=== PATIENT | female | born 1980 | race Caucasian/White ===

== ENCOUNTER 2024-11-25 12:36 | Outpatient (CLI) | payer OTHER, SELFPAY ==
--- NOTE | ~2024-11-25 | MR_ITS ---
MR breast BI wo/w con 11/26/2024 07:41 AUTO TRANSMISSION TECHNICIAN INDICATION: CHEK2 Gene mutation TECHNIQUE: MRI of the breasts perform using standard protocol pre-and post IV contrast with the follo wing sequences: Axial T2 STIR, axial T1, axial vibrant T1 with fat suppression precontrast and multip hasic postcontrast. 18 cc MultiHance administered intravenously. COMPARISON: No prior studies for comparison. FINDINGS: There is a scattered fibroglandular content throughout both breasts. There are bilateral br east implants which appear intact. There are no abnormalities on the precontrast sequences. There is mild background parenchymal enhancement. No enhancing lesions following contrast administration. No areas of enhancement meeting threshold criteria on CAD analysis. No evidence of signal abnormalitie s in the axillary or internal mammary node distributions. LEFT BREAST: No signal abnormalities on precontrast sequences. There is mild background parenchymal enhancement. There is segmental nonmass-like enhancement in the upper outer quadrant of the left ashutosh st at 1:00, middle third, 8.8 cm posterior to the nipple. This area measures 2.7 x 0.9 x 2.5 cm with rapid washout enhancement. No evidence of signal abnormalities in the axillary or internal mammary no de distributions.] IMPRESSION: 1: Segmental nonmass-like enhancement in the upper outer quadrant of the left breast. There are scatt ered areas of bilateral symmetric nodular nonmasslike enhancement, likely background enhancement. Rec ommend correlation with diagnostic bilateral mammogram and bilateral complete breast ultrasound. BI-RADS CATEGORY 0 - INCOMPLETE STUDY, NEED ADDITIONAL IMAGING EVALUATION. Reviewed, dictated and finalized at location B. TRANSMISSION TECHNICIAN IMPRESSION: 1: Segmental nonmass-like enhancement in the upper outer quadrant of the left b reast. There are scattered areas of bilateral symmetric nodular nonmasslike enh ancement, likely background enhancement. Recommend correlation with diagnostic bilateral mammogram and bilateral complete breast ultrasound. BI-RADS CATEGORY 0 - INCOMPLETE STUDY, NEED ADDITIONAL IMAGING EVALUATION.
--- OUTSIDE RECORDS SUMMARY | 2024-11-25 13:40 | XMS_ITS | Encounter Summary ---
Author Organization [facility] Address [address] [place] [address] Phone Care Team Providers Care Oracle Manager Name Role Phone Lia Duran MD Unavailable Rajwinder Alvarez APRN, DATA CONVERSION ANALYST Unavailable Newton Dos Santos JIGGER CROWN POUNCING MACHINE OPERATOR, DATA CONVERSION ANALYST Primary Care Pr ovider Yfn Veliz MD Unavailable Encounter Details Date Type Department Care Team (Late Contact Info) Description 2024 Results Follow-Up [facility] - Gastroenterology - [place] [address] [place] [address] Ellie Diaz, RN [place] Social History Tobacco Use Types Packs/Day Years Used Date Smoking Tobacco: Some Days Cigarettes 0.3 32.1 Started: 1992 Smokeless Tobacco: Never Comments:Patient declined sm oking cessation information/kkb Alcohol Use Standard Drinks/Week Comments Yes 10 (1 standard drink = 0.6 oz pu re alcohol) weekend drinker (8-10) Sexually Active Control Partners Comments Yes Surgical Male Comments No Sex and Gender Information Value Date Recorded Sex Assigned at Not on file 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 Gender Identity Not on file Sexual Orientation Not on file documented as of this encounter Plan of Treatment Upcoming Encounters Date Type Department Care Team (Late st Contact Info) Description 03/02/2025 3:15 PM CDT Office Visit [facility] - Endocrinology - [place] [address] [place] [phone] Lia Duran MD [address] [phone] 03/25/2025 1:40 PM CDT Office Visit [facility] [address] [place] [phone] Olvin Livingston MD [address] [place] [address] Discharge Disposition: Discharged to home or Selfcare documented as of this encounter Visit Diagnoses Not on filedocumented in this encounter Care Teams Oracle Manager Relationship Specialty Start Date End Date Newton Dos Santos APRN, DATA CONVERSION ANALYST [address] [id number] PCP - General Advanced Practice Nurse 06/24/24 Lia Duran MD [address] [id number] Consulting Physician Endocrinology 01/02/24 Rajwinder Alvarez APRN, DATA CONVERSION ANALYST [address] [place] [address] Nurse Practitioner Advanced Practice Nurse 02/18/24 Yfn Veliz MD [address] [address] Consulting Physician Colon and Rectal Surgery 06/25/24 documented as of this encounter
--- OUTSIDE RECORDS SUMMARY | 2024-11-25 13:40 | XMS_ITS | Clinical Summary ---
Author Organization [facility] Address [address] [place] [address] Care Team Providers Care Account Technician Name Role Phone Ernesto Tom MD Primary Care Provider Lorelei Urena MD Unavailable [phone] Kecia Flores NP Unavailable Allergies Active Allergy Reactions Criticality Noted Date Comments Latex Itching,Rash Medium 01/02/2019 Nitrofurantoin Monohyd/M-Cryst Urticaria Medium 03/02/2021 Morphine Shortness of breath Medium Reaction: Trouble Breathing, , , , Reaction: Trouble Breathing, Morphine Other (See comments) Low 01/02/2019 Difficulty breathing Sulfa (Sulfonamide Antibiotics) Joint pain,Other (See comments) Medium Reaction: Joint pain, , Reaction: OTHER REACTION, , , Reaction: Joint pain, Sulfa (Sulfonamide Antibiotics) Other (See comments) Low 01/02/2019 Lowers potassium Medications ELDERBERRY FRUIT ORAL Take by mouth Activ e ibuprofen (ADVIL,MOTRIN) 600 mg tablet Take 1 tablet (600 mg total) by mouth every 6 (six) hours as needed for pain 2 Active Mounjaro 5 mg/0.5 mL pen injector INJECT 5MG SUBCUTANEOUS ONCE WEEKLY 3 Active Mounjaro 7.5 mg/0.5 mL pen injector INJECT 1 SYRINGE UNDER THE SKIN ONCE WEEKLY 3 Active methIMAzole (TAPAZOLE) 10 mg tablet Take 1 tablet (10 mg total) by mouth daily 30 tablet 3 3 Active metFORMIN (GLUCOPHAGE) 850 mg tablet Take 1 tablet (850 mg total) by mouth daily 3 Active dexAMETHasone (DECADRON) 1 mg tablet TAKE 1 TABLET BY MOUTH BETWEEN 11 PM AND 12AM THE DAY BEFORE LABS 3 Active fluconazole (DIFLUCAN) 150 mg tabletIndicatio ns:Antibiotic-i nduced yeast infection Take 1 then, repeat in 5 days if needed 2 tablet 3 Active Active Problems Problem Noted Date Diagnosed Date Irritable bowel syndrome without diarrhea 2022 GERD (gastroesophageal reflux disease) 3 Thyrotoxicosis with toxic multinodular goiter Assessment & Plan (12/31/2022 10:11 AM CDT): Chronic, uncontrolled Options of rx were discussed again Would not recommend CHACKO ablation, pt also not inclined towards it. Importance of taking the methimazole, in order to control the hyperthyroidism was explained. Methimazole, 10 mg daily Recheck TFTs in 2 m F/u in 4 m Assessment & Plan (01/15/2022 11:13 AM CDT): Chronic problem, not at goal. Discussed at length thyroid disease pathophysiology and need for normalization of thyroid hormone levels which she understands. Discussed monitoring protocol with MMI (q 2-3 month labs, regular f/u) vs. LT4 if she ended up on thyroid hormone replacement if she goes with more permanent option for treatment. She thinks she prefers more permanent treatment but unsure about CHACKO vs surgery. Will order I-123 scan to evaluate further since she is already off MMI. When she goes in for scan, repeat labs the same day to reevaluate. Rx for propanolol to use as needed for symptoms, reviewed again that these are related to underlying hyperthyroidism, not anti thyroid drug AE. Assessment & Plan (08/14/2021 4:03 PM CDT): It was explained to the patient that the therapeutic approach to hyperthyroidism consists of both rapid amelioration of symptoms with a beta saurabh and measures aimed at decreasing thyroid hormone synthesis. Options of treatment were discussed and include: the administration of a thionamide, radioiodine ablation, or surgery . Goal of treatment Is to normalize serum thyroid hormone levels, as indicated by a normal serum level of T4 and T3. Normalization of thyroid hormone levels usually translates into improvement of symptoms. Weight gain is a common complaint in patients treated for hyperthyroidism, regardless of what treatment is used. Most patient go back to their original weight and but many patients gain additional weigth A low calorie diet and a exercise program is of paramount importance when addressing this problem. I have recommended to start with thionamide therapy with Tapazole 10 mg daily. I have given an order to check thyroid levels again in 2 months. Follow-up in 4 months Assessment & Plan (07/19/2021 3:21 PM CDT): Referral to Wreath Inspector If medical therapy for Hyperthyroidism is unsuccessful will recommend thyroid lobectomy Menorrhagia 03/13/2021 Overview (07/20/2023): Added automatically from request for surgery [id number] Note: Unchanged Benign endometrial hyperplasia 03/13/2021 Overview (09/21/2023): Note: Unchanged Note: Unchanged Screening for diabetes mellitus 01/27/2021 Thyroid nodule 06/02/2015 Overview (01/25/2017): Thyroid nodule Obesity 05/19/2015 Overview (07/20/2023): BMI 30+ - obesity Polycystic ovaries 05/19/2015 Overview (07/20/2023): PCOS - Polycystic ovarian syndrome Note: history of Anxiety 05/12/2014 Overview (01/25/2017): Anxiety Current smoker 12/19/2012 Overview (01/24/2017): Smoker Adiposity 12/19/2012 Overview (01/25/2017): Obesity Elevated blood-pressure read ing without diagnosis of hypertension 12/19/2012 Overview (01/25/2017): Blood pressure elevated without history of HTN Depression 12/19/2012 Overview (01/25/2017): Depression Immunizations Name Administration Dates Next Due Influenza, Quadrivalent, Spl it, Preservative Free, Intramuscular 09/08/2014 Surgical History Surgery Date Site/Laterality Comments CHOLECYSTECTOMY 10/21/2007 - 10/20/2008 TUBAL LIGATION 10/21/2008 - 10/20/2009 TONSILLECTOMY 10/21/2007 - 10/20/2008 LUMBAR PUNCTURE WO INJECTION, DIAGNOSTIC 05/06/2014 N/A LAPAROSCOPIC OVARIAN CYSTECTOMY 10/21/2018 - 10/20/2019 OVARIAN CYSTECTOMY 10/21/2001 - 10/20/2002 AUGMENTATION MAMMOPLASTY HYSTEROSCOPY W/ ENDOMETRIAL ABLATION 10/21/2021 - 10/20/2022 Hysteroscopy, D&C, Criselda endometrial ablation Medical History Medical History Date Comments Ovarian cyst Right Thyroid nodule PONV (postoperative nausea and vomiting) Depression Depression Abnormal Pap smear of cervix low grade dysplasia around [id number] GERD (gastroesophageal reflux disease) Hyperthyroidism Endometrial hyperplasia with out atypia, simple 2020 Repeat EMB 2021 - benign end ometrium. Family History Medical History Relation Name Comments COPD Father Heart attack Father Lung cancer Father Graves' disease Father's Brother Hypertension Mother Thyroid disease Mother Other Other 1 1 Other Other 2 1 Other Other 3 1 Other Other 4 1 Other Other 5 1 Other Other 6 1 Other Other 7 MGGM Cancer, breast and ovarian; Other Other 8 1 Other Other 9 Family history of Pernicious anemia; RED 05/23/2015 - MUNIRA MGM Relation Name Status Comments Father Father's Brother Mother Other 1 Other 2 Other 3 Other 4 Other 5 Other 6 Other 7 MGGM Other 8 Other 9 Social History Tobacco Use Types Packs/Day Years Used Date Smoking Tobacco: Every Day Cigarettes 0.5 30.1 Started: 1994 Smokeless Tobacco: Never Tobacco Cessation:Ready to Q uit: Not Asked; Counseling Given: Not Answered Alcohol Use Standard Drinks/Week Comments Yes 0 (1 standard drink = 0.6 oz pur e alcohol) Socially AUDIT-C Answer Date Recorded Q1: How often do you have a drink containing alc ohol? 2-4 times a month 08/20/2022 Q2: How many drinks containi ng alcohol do you have on a typical day when you are drinking? 7 to 9 08/20/2022 Q3: How often do you have si x or more drinks on one occasion? 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 Gender Identity Not on file Sexual Orientation Not on file Occupation Industry Job Start Date Job End Date Not on file Not on file Not on file Not on file Obstetrics History Para Term AB IAB SAB Ectopic Multiple Livin g Live Births 3 2 2 0 1 0 0 0 2 2 Date Outcome GA Total Labor Labor/2nd/3rd Weight Sex Type Anes PTL Precious A1 A5 Name Clin AB 1999 Term 3.544 kg (7 lb 13 oz) F Vag-S pont Living 2008 Term 3.969 kg (8 lb 12 oz) M Vag-S pont Living Last Filed Vital Signs Vital Sign Reading Time Taken Comments Blood Pressure 128/80 09/21/2023 8:18 AM ASSISTANT PROFESSOR OF DRAMA Pulse 99 09/21/2023 8:18 AM ASSISTANT PROFESSOR OF DRAMA Temperature 36.7 C (98.1 F) 09/21/2023 8:18 AM ASSISTANT PROFESSOR OF DRAMA Respiratory Rate 18 09/21/2023 8:18 AM ASSISTANT PROFESSOR OF DRAMA Oxygen Saturation 98% 09/21/2023 8:18 AM ASSISTANT PROFESSOR OF DRAMA Inhaled Oxygen Concentration - - Weight 88.5 kg (195 lb) 09/21/2023 8:18 AM ASSISTANT PROFESSOR OF DRAMA Height 170.2 cm (5' 7 ) 09/21/2023 8:18 AM ASSISTANT PROFESSOR OF DRAMA Body Mass Index 30.54 09/21/2023 8:18 AM ASSISTANT PROFESSOR OF DRAMA Plan of Treatment Health Maintenance Due Date Last Done Comments Cervical Cancer Screening 1980 Hepatitis C Screening 1980 Pneumococcal vaccine <65 (1 of 2 - PCV) 1986 DTaP/Tdap/Td Vaccine (1 - Tdap) 1991 Varicella Vaccines (1 of 2 - 13+ 2-dose series) 1993 Hepatitis B Screening 1998 Depression Screening 08/14/2022 08/14/2021 Breast Cancer Screening-Mammogram 07/09/2023 07/09/2022, 12/09/2020 Regular Well Visit/Exam 18-64 02/09/2024, 01/26/2022 Influenza Vaccine (#1) 2024 4, 11/05/2013 HPV Vaccines Aged Out No longer eligi ble based on patient's age to complete this topic Procedures Procedure Name Priority Date/Time Associated Diagnosis Comments SCREENING MAMMOGRAM BILATERAL W SCOTT W IMPLANTS Schedule Routine, Read Routine (OP Routine) 07/09/2022 2:30 PM CDT Encounter for screening mammogram for breast cancer from Last 3 Months or Most Recently Relevant to Health Maintenance Results * Screening Mammogram Bilateral W Scott W Implants (07/09/2022 2:30 PM CDT) Anatomical Region Laterality Modality Breast Bilateral Mammography Narrative 07/09/2022 3:49 PM CDT BILATERAL DIGITAL MAMMOGRAPHY with tomography. The present examination is patient's baseline. Mammography Findings CAD (computer-aided detection) software was utilized. The breasts are heterogeneously dense. This may lower the sensitivity of mammography. No masses, significant calcifications or other abnormalities are seen in the left breast. Bilateral breast implants noted. There is focally dense breast tissue of the right lower outer breast. Although no discrete mass is seen, additional compression views, true lateral image common ultrasound is suggested to better evaluate this area of focal density. Impression Asymmetrical, focally dense breast tissue of the right lower outer breast noted. Additional compression views, true lateral image, and ultrasound suggested to better evaluate this finding. BI-RADS Category 0: Incomplete. Need additional imaging evaluation. PATIENT LETTER SENT us Paula Pantoja MD IMG MAMMO PROCEDURES Final Result from Last 3 Months or Most Recently Relevant to Health Maintenance Insurance [facility] [employer] [employer] ACCESS [place] [address] [place] [id number] [address] [place] [id number] [address] [place] [id number] Care Teams Account Technician Relationship Specialty Start Date End Date Ernesto Tom MD PCP - General 05/22/21 Lorelei Urena MD 09/05/20 Kecia Flores NP [address] [place] [id number] Nurse Practitioner 12/24/22
--- OUTSIDE RECORDS SUMMARY | 2024-11-25 13:40 | XMS_ITS | Data Portability ---
Author Organization [facility] Address [address] [facility] [address] Assessment No assessment recorded. Plan of Treatment Reminders Order Date Submit Date Provider Last Modified By Organization Details Last Modified Time Details Appointments None recorded. Lab bacterial vaginosis + vaginitis panel, vaginal 2016 017 okolade [facility], [address] [place] [address], [facility], [place], [address], 7 11:34:11 pap, IG + reflex HR HPV (16+18) 2016 017 okolade [facility], [address] [place] [address], [address], [place], [address], 7 11:34:11 CBC w/ auto diff 2016 017 okolade [facility], [address] [place] [address], [address], [place], [address], 7 11:34:11 prolactin, serum 2016 017 okolade [facility], [address] [place] [address], [address], [place], [address], 7 11:34:11 urinalysis , dipstick 2016 017 okolade In-Office Order, Internal Use Only DO Not Attach Compendium DO Not Attach Compendium, Do Not Delete/merge, [id number] 7 11:34:11 culture, urine 2016 017 manuel FRIEDMAN, Marcello Rendon, [address], [place], [address], 7 11:34:11 test, urine 2016 017 milaolade In-Office Order, Internal Use Only DO Not Attach Compendium DO Not Attach Compendium, Do Not Delete/merge, [id number] 7 11:34:11 urinalysis , dipstick 2017 018 MICHELET In-Office Order, Internal Use Only DO Not Attach Compendium DO Not Attach Compendium, Do Not Delete/merge, [id number] 8 19:10:33 culture, urine 2017 018 MICHELET RANGELELEUTERIO, Marcello De Souza [address], [address], [place], [address], 8 11:10:08 drug screen, urine 2017 018 MICHELET RANGELELEUTERIO, Marcello De Souza [address], [address], [place], [address], 8 11:10:07 bacterial vaginosis + vaginitis panel, vaginal 2017 018 MICHELET RANGELELEUTERIO, Marcello [address]endon, [address], [place], [address], 8 11:10:07 prolactin, serum 2018 019 MICHELET RANGELELEUTERIO, Marcello Duquefernandopatrickangel Rendon, [address], [place], [address], 9 07:15:28 CBC w/ auto diff 2018 019 MICHELETREENA FRIEDMAN, LopezKatrina [facility], [address], [place], [address], 9 07:15:27 TSH + free T4, serum 2018 019 [place] [facility], [address] [facility], [address], [place], [address], 9 07:15:27 Referral None recorded. Procedures None recorded. Surgeries None recorded. Imaging US, pelvis, complete 2017 [facility], [address] , [place], [address], 8 16:25:53 US, pelvis, complete 2018 [facility] Scheduling, [address] [facility] [place], [address], 9 15:47:12 Medication Orders Tylenol-Co deine #3 300 mg-30 mg tablet 2017 018 [id number], [address] [facility], [place], [place], [id number], 8 18:59:35 Patient TargetsNo targets recorded. Patient Instructions Encounter Date Encounter Id Patient Instructions Last Modified By Organization Details Last Modified Time 07/31/2017 [id number] CBC, TSH, prolactin was ordered for abnormal uterine bleeding. The option of mirena IUD was discussed with the patient. The alternative of endometrial ablation also discussed with the patient. Patient is not a candidate for OCPs as she smokes and is more than 35 years old. Pap smear was sent. Vaginitis panel and urine culture was ordered. Will do a bedside US during the next visit if the pain persists. okolade Not available 08/01/2017 00:49:21 01/07/2018 [id number] Urinary Tract Infection (UTI) in Women: Care Instructions okolade Not available 01/07/2018 18:59:35 Labs and pelvic US was ordered. Will re-evaluate with results. Rx for pain medication was given. okolade Not available 01/07/2018 19:38:45 Reason for Referral None Reported. Results Created Date Observation Date Name Description Value Unit Range Abnormal Flag Note LastModifiedBy Organization Detail LastModifiedTime 08/01/20 17 08/01/2017 pregn ela test, urine HCG negati ve Not Available In-Office Order Internal Use Only DO Not Attach Compendium DO Not Attach Compendium, Do Not Delete/merge, [id number] 08/01/2017 09:17:18 07/31/20 17 07/31/2017 urina lysis , dipst ick Leukocytes Negati ve Not Available In-Office Order Internal Use Only DO Not Attach Compendium DO Not Attach Compendium, Do Not Delete/merge, [id number] 07/31/2017 15:46:54 07/31/20 17 07/31/2017 urina lysis , dipst ick Nitrite negati ve Not Available In-Office Order Internal Use Only DO Not Attach Compendium DO Not Attach Compendium, Do Not Delete/merge, [id number] 07/31/2017 15:46:54 07/31/20 17 07/31/2017 urina lysis , dipst ick Urobilinogen .2 Not Available In-Of fice Order Internal Use Only DO Not Attach Compendium DO Not Attach Compendium, Do Not Delete/merge, [id number] 07/31/2017 15:46:54 07/31/20 17 07/31/2017 urina lysis , dipst ick Protein Trace Not Available In-Office Order Internal Use Only DO Not Attach Compendium DO Not Attach Compendium, Do Not Delete/merge, [id number] 07/31/2017 15:46:54 07/31/20 17 07/31/2017 urina lysis , dipst ick pH 5.5 Not Available In-Office Order Internal Use Only DO Not Attach Compendium DO Not Attach Compendium, Do Not Delete/merge, [id number] 07/31/2017 15:46:54 07/31/20 17 07/31/2017 urina lysis , dipst ick Blood Negati ve Not Available In-Office Order Internal Use Only DO Not Attach Compendium DO Not Attach Compendium, Do Not Delete/merge, [id number] 07/31/2017 15:46:54 07/31/20 17 07/31/2017 urina lysis , dipst ick Specific [place] 1.020 Not Available In-Off ice Order Internal Use Only DO Not Attach Compendium DO Not Attach Compendium, Do Not Delete/merge, [id number] 07/31/2017 15:46:54 07/31/20 17 07/31/2017 urina lysis , dipst ick Ketone Trace Not Available In-Office Order Internal Use Only DO Not Attach Compendium DO Not Attach Compendium, Do Not Delete/merge, [id number] 07/31/2017 15:46:54 07/31/20 17 07/31/2017 urina lysis , dipst ick Bilirubin Small Not Available In-Offic e Order Internal Use Only DO Not Attach Compendium DO Not Attach Compendium, Do Not Delete/merge, [id number] 07/31/2017 15:46:54 07/31/20 17 07/31/2017 urina lysis , dipst ick Glucose Negati ve Not Available In-Office Order Internal Use Only DO Not Attach Compendium DO Not Attach Compendium, Do Not Delete/merge, [id number] 07/31/2017 15:46:54 07/31/20 17 07/31/2017 urina lysis , dipst ick Appearance Slight ly Cloudy Not Available In-Office Order Internal Use Only DO Not Attach Compendium DO Not Attach Compendium, Do Not Delete/merge, [id number] 07/31/2017 15:46:54 07/31/20 17 07/31/2017 urina lysis , dipst ick Color Dark Yellow Not Available In-Office Order Internal Use Only DO Not Attach Compendium DO Not Attach Compendium, Do Not Delete/merge, [id number] 07/31/2017 15:46:54 07/31/20 17 08/02/2017 pap, IG + refle x HR HPV (16+1 8) diagnosis: Commen t NEGAT DALTON FOR INTRA EPITH ELIAL LESKINGSTON N AND FELICITY SALOMON . Not Available [facility] [address] [facility], [place], [address], 08/03/2017 07:13:35 07/31/20 17 08/02/2017 pap, IG + refle x HR HPV (16+1 8) specimen adequacy: Commen t Satis facto ry for evalu ation . Endoc ervic al and/o r squam ous metap lasti c cells (endo cervi mark compo nent) are prese nt. Not Available [facility] ([facility]) [address] [facility], [place], [address], 08/03/2017 07:13:35 07/31/20 17 08/02/2017 pap, IG + refle x HR HPV (16+1 8) performed by: Darian Rome , Cytojillian walsh (ASCP ) Not Available [facility] ([facility] [address] [place], [address], 08/03/2017 07:13:35 07/31/20 17 08/02/2017 pap, IG + refle x HR HPV (16+1 8) . . Not Available [facility] ([facility]) [address] [facility], [place], [address], 08/03/2017 07:13:35 07/31/20 17 08/02/2017 pap, IG + refle x HR HPV (16+1 8) note: Darian walsh The Pap smear is a scree deborah test desig ana maria to aid in the detec tion of emile ligna nt and malig nant condi tions of the uteri ne cervi x. It is not a diagn ostic proce dure and shoul d not be used as the sole means of detec ting cervi mark cance r. Both false -posi tive and false -nega tive repor ts do occur . Not Available [facility]) [address] [facility], [place], [address], 08/03/2017 07:13:35 07/31/20 17 08/02/2017 pap, IG + refle x HR HPV (16+1 8) test methodology: Darian walsh This liqui d based ThinP rep(R ) pap test was scree ana maria with the use of an image guide d syste m. Not Available [facility] ([facility]) [address] [facility], [place], [address], 08/03/2017 07:13:35 07/31/20 17 08/02/2017 pap, IG + refle x HR HPV (16+1 8) HPV, high-risk Negati ve negati ve This high- risk HPV test detec ts thirt een high- risk types (16/1 8/31/ 33/35 /39/4 5/51/ 52/56 /58/5 ) witho ut diffe renti ation . Not Available [facility]) [address] [facility], [place], [address], 08/03/2017 07:13:35 07/31/20 17 08/02/2017 bacte rial vagin osis + vagin itis panel , vagin al atopobium vaginae High - 2 score abnormal Not Available [facility] [address] [place], [address], 08/03/2017 16:11:00 07/31/20 17 08/02/2017 bacte rial vagin osis + vagin itis panel , vagin al bvab 2 High - 2 score abnormal Not Available [facility] [address] [place], [address], 08/03/2017 16:11:00 07/31/20 17 08/02/2017 bacte rial vagin osis + vagin itis panel , vagin al megasphaera 1 High - 2 score abnormal Calcu late total score by addin g the 3 indiv idual bacte rial vagin osis (BV) marke r score s toget her. Total score is inter prete d as follo ws: Total score 0-1: Indic ates the absen ce of BV. Total score 2: Indet ermin ate for BV. Addit ional clini mark data shoul d be evalu ated to estab dirk a diagn osis. Total score 3-6: Indic ates the prese nce of BV. This test was devel oped and its perfo rmanc e justin cteri stics deter mined by [employer]. It has not been clear ed or appro pramod by the Food and Drug Admin istra tion. The FDA has deter mined that such clear ance or appro will is not neces april. Not Available [facility] ([facility] [address] [place], [address], 08/03/2017 16:11:00 07/31/20 17 08/03/2017 bacte rial vagin osis + vagin itis panel , vagin al adriano albicans, NOLBERTO Negati ve negati ve Not Available [facility] [address] [place], [address], 08/03/2017 16:11:00 07/31/20 17 08/03/2017 bacte rial vagin osis + vagin itis panel , vagin al adriano glabrata, NOLBERTO Negati ve negati ve This test was devel oped and its perfo rmanc e justin cteri stics deter mined by [employer] [facility]. It has not been clear ed or appro pramod by the Food and Drug Admin istra tion. The FDA has deter mined that such clear ance or appro will is not neces april. Not Available [facility] ([facility] [address] [place], [address], 08/03/2017 16:11:00 07/31/20 17 08/03/2017 bacte rial vagin osis + vagin itis panel , vagin al trich vag by NOLBERTO Negati ve negati ve Not Available [facility] [address] [place], [address], 08/03/2017 16:11:00 07/31/20 17 08/03/2017 bacte rial vagin osis + vagin itis panel , vagin al chlamydia trachomatis, NOLBERTO Negati ve negati ve Not Available [facility] [address] [place], [address], 08/03/2017 16:11:00 07/31/20 17 08/03/2017 bacte rial vagin osis + vagin itis panel , vagin al neisseria gonorrhoeae, NOLBERTO Negati ve negati ve Not Available [facility] [address] [facility], [place], [address], 08/03/2017 16:11:00 07/31/20 17 08/01/2017 CBC w/ auto diff WBC 7.7 x10e3 /uL 3.4-10 .8 Not Available [facility] [address] [place], [address], 08/03/2017 16:11:00 07/31/20 17 08/01/2017 CBC w/ auto diff RBC 5.12 x10e6 /uL 3.77-5 .28 Not Available [facility] [address] [place], [address], 08/03/2017 16:11:00 07/31/20 17 08/01/2017 CBC w/ auto diff hemoglobin 17.4 g/dL 11.1-1 5.9 above high normal Not Available [facility] [address] [place], [address], 08/03/2017 16:11:00 07/31/20 17 08/01/2017 CBC w/ auto diff hematocrit 46.7 % 34.0-4 6.6 above high normal Not Available [facility] [address] [place], [address], 08/03/2017 16:11:00 07/31/20 17 08/01/2017 CBC w/ auto diff MCV 91 fL 79-97 Not Available [facility] [address] [place], [address], 08/03/2017 16:11:00 07/31/20 17 08/01/2017 CBC w/ auto diff MCH 34.0 pg 26.6-3 3.0 above high normal Not Available [facility] [address] [facility], [place], [address], 08/03/2017 16:11:00 07/31/20 17 08/01/2017 CBC w/ auto diff MCHC 37.3 g/dL 31.5-3 5.7 above high normal Not Available [facility] [address] [facility], [place], [address], 08/03/2017 16:11:00 07/31/20 17 08/01/2017 CBC w/ auto diff RDW 13.0 % 12.3-1 5.4 Not Available [facility] [address] [facility], [place], [address], 08/03/2017 16:11:00 07/31/20 17 08/01/2017 CBC w/ auto diff platelets 190 x10e3 /uL 150-37 9 Not Available [facility] [address] [place], [address], 08/03/2017 16:11:00 07/31/20 17 08/01/2017 CBC w/ auto diff neutrophils 70 % not estab. Not Available [facility] [address] [facility], [place], [address], 08/03/2017 16:11:00 07/31/20 17 08/01/2017 CBC w/ auto diff lymphs 23 % not estab. Not Available [facility] [address] [facility], [place], [address], 08/03/2017 16:11:00 07/31/20 17 08/01/2017 CBC w/ auto diff monocytes 5 % not estab. Not Available [facility] [address] [facility], [place], [address], 08/03/2017 16:11:00 07/31/20 17 08/01/2017 CBC w/ auto diff eos 1 % not estab. Not Available [facility] [address] [place], [address], 08/03/2017 16:11:00 07/31/20 17 08/01/2017 CBC w/ auto diff basos 1 % not estab. Not Available [facility] [address] [place], [address], 08/03/2017 16:11:00 07/31/20 17 08/01/2017 CBC w/ auto diff immature cells MANAGER OF TRAINING AND DEVELOPMENT Not Available [facility] [address] [place], [address], 08/03/2017 16:11:00 07/31/20 17 08/01/2017 CBC w/ auto diff neutrophils (absolute) 5.5 x10e3 /uL 1.4-7. 0 Not Available [facility] [address] [place], [address], 08/03/2017 16:11:00 07/31/20 17 08/01/2017 CBC w/ auto diff lymphs (absolute) 1.8 x10e3 /uL 0.7-3. 1 Not Available [facility] [address] [place], [address], 08/03/2017 16:11:00 07/31/20 17 08/01/2017 CBC w/ auto diff monocytes(ab solute) 0.4 x10e3 /uL 0.1-0. 9 Not Available [facility] [address] [place], [address], 08/03/2017 16:11:00 07/31/20 17 08/01/2017 CBC w/ auto diff eos (absolute) 0.1 x10e3 /uL 0.0-0. 4 Not Available [facility] [address] [place], [address], 08/03/2017 16:11:00 07/31/20 17 08/01/2017 CBC w/ auto diff baso (absolute) 0.1 x10e3 /uL 0.0-0. 2 Not Available [facility] [address] [facility], [place], [address], 08/03/2017 16:11:00 07/31/20 17 08/01/2017 CBC w/ auto diff immature granulocytes 0 % not estab. Not Available [facility] [address] [facility], [place], [address], 08/03/2017 16:11:00 07/31/20 17 08/01/2017 CBC w/ auto diff immature grans (abs) 0.0 x10e3 /uL 0.0-0. 1 Not Available [facility] [address] [place], [address], 08/03/2017 16:11:00 07/31/20 17 08/01/2017 CBC w/ auto diff NRBC MANAGER OF TRAINING [employer] DEVELOPMENT Not Available [facility] [address] [place], [address], 08/03/2017 16:11:00 07/31/20 17 08/01/2017 CBC w/ auto diff hematology comments: Note: Verif ied by micro deridrei navid rodriguesi natkingston n. Not Available [facility] ([facility] [address] [place], [address], 08/03/2017 16:11:00 07/31/20 17 08/01/2017 prola ctin, serum prolactin 14.0 NG/mL 4.8-23 .3 Not Available [facility] [address] [place], [address], 08/03/2017 16:11:01 07/31/20 17 08/03/2017 cultu re, urine urine culture, routine Final report abnormal Not Available [facility] [address] [place], [address], 08/03/2017 16:11:01 07/31/20 17 08/03/2017 cultu re, urine result 1 Entero coccus faecal is abnormal Great er than 100,0 00 colon y formi ng units per mL Note: this isola te is vanco mycin -susc eptib le. This infor matio n is provi ded for epide miolo gic purpo ses only: vanco mycin is not among the antib iotic s recom elva d for thera py of urina ry tract infec tions cause d by Enter ococc us. For Enter ococc us speci es, cepha lospo rins, amino glyco sides (exce pt for high- level resis tance scree deborah) , clind amyci n, and trime thopr im- sulfa metho xazol e are not effec tive clini karel . Fluor oquin olone s are used prima rily for treat ing urina ry tract infec tions . (CLSI , M100- S19, 2008) Not Available [facility] [address] [facility], [place], [address], 08/03/2017 16:11:01 07/31/20 17 08/03/2017 cultu re, urine antimicrobia l susceptibili ty Commen t S = Susce ptibl e; I = Inter media te; R = Resis tant P = Posit dalton; N = Negat dalton MICS are expre ssed in micro grams per mL Antib iotic RSLT# 1 RSLT# 2 RSLT# 3 RSLT# 4 Cipro floxa tomas R Levof loxac in R Nitro furan toin I Penic illin S Tetra cycli ne R Vanco mycin S Not Available [facility] [address] [facility], [place], [address], 08/03/2017 16:11:01 07/31/20 17 08/02/2017 TSH, ultra -sens itive , serum TSH 0.454 uIU/m L 0.450- 4.500 Not Available [facility] [address] [place], [address], 08/05/2017 16:16:03 07/31/20 17 08/05/2017 writt en autho ridiamondt ion written authorizatio n Commen t No Writt en Autho rizat ion Recei pramod. Not Available [facility] ([facility] [address] [place], [address], 08/05/2017 16:16:03 01/08/20 18 01/09/2018 drug scree n, urine amphetamines , urine Negati ve NG/mL cutoff =1000 Amphe tamin e test inclu kiah Amphe tamin e and Metha mphet amine . Not Available [facility] [address] [place], [address], 01/11/2018 11:10:07 01/08/20 18 01/09/2018 drug scree n, urine barbiturates Negati ve NG/mL cutoff =200 Not Available [facility] [address] [place], [address], 01/11/2018 11:10:07 01/08/20 18 01/09/2018 drug scree n, urine benzodiazepi lenny Negati ve NG/mL cutoff =200 Not Available [facility] [address] [place], [address], 01/11/2018 11:10:07 01/08/20 18 01/09/2018 drug scree n, urine cannabinoid Negati ve NG/mL cutoff =50 Not Available [facility] [address] [place], [address], 01/11/2018 11:10:07 01/08/20 18 01/09/2018 drug scree n, urine cocaine (metab.) Negati ve NG/mL cutoff =300 Not Available [facility] [address] [place], [address], 01/11/2018 11:10:07 01/08/20 18 01/09/2018 drug scree n, urine methaqualone Negati ve NG/mL cutoff =300 Not Available [facility] [address] [place], [address], 01/11/2018 11:10:07 01/08/20 18 01/09/2018 drug scree n, urine opiates Negati ve NG/mL cutoff =2000 Opiat e test inclu kiah Codei ne and Morph ine only. Not Available [facility] [address] [place], [address], 01/11/2018 11:10:07 01/08/20 18 01/09/2018 drug scree n, urine phencyclidin e Negati ve NG/mL cutoff =25 Not Available [facility] [address] [place], [address], 01/11/2018 11:10:07 01/08/20 18 01/09/2018 drug scree n, urine methadone screen, urine Negati ve NG/mL cutoff =300 Not Available [facility] [address] [place], [address], 01/11/2018 11:10:07 01/08/20 18 01/09/2018 drug scree n, urine propoxyphene , urine Negati ve NG/mL cutoff =300 Not Available [facility] [address] [place], [address], 01/11/2018 11:10:07 01/08/20 18 01/09/2018 bacte rial vagin osis + vagin itis panel , vagin al trich vag by NOLBERTO Negati ve negati ve Not Available [facility] [address] [place], [address], 01/11/2018 11:10:07 01/08/20 18 01/09/2018 bacte rial vagin osis + vagin itis panel , vagin al chlamydia trachomatis, NOLBERTO Negati ve negati ve Not Available [facility] [address] [facility], [place], [address], 01/11/2018 11:10:07 01/08/20 18 01/09/2018 bacte rial vagin osis + vagin itis panel , vagin al neisseria gonorrhoeae, NOLBERTO Negati ve negati ve Not Available [facility] [address] [facility], [place], [address], 01/11/2018 11:10:07 01/08/20 18 01/10/2018 bacte rial vagin osis + vagin itis panel , vagin al adriano albicans, NOLBERTO Negati ve negati ve Not Available [facility] [address] [facility], [place], [address], 01/11/2018 11:10:07 01/08/20 18 01/10/2018 bacte rial vagin osis + vagin itis panel , vagin al adriano glabrata, NOLBERTO Negati ve negati ve This test was curly contreras and its perfo rmanc e justin cteri stics deter mined by [facility]. It has not been clear ed or appro pramod by the Food and Drug Admin istra tion. The FDA has deter mined that such clear ance or appro will is not neces april. Not Available [facility] [address] [facility], [place], [address], 01/11/2018 11:10:07 01/08/20 18 01/11/2018 bacte rial vagin osis + vagin itis panel , vagin al atopobium vaginae Modera te - 1 score Not Available [facility] [address] [place], [address], 01/11/2018 11:10:07 01/08/20 18 01/11/2018 bacte rial vagin osis + vagin itis panel , vagin al bvab 2 Low - 0 score Not Available [facility] [address] [place], [address], 01/11/2018 11:10:07 01/08/20 18 01/11/2018 bacte rial vagin osis + vagin itis panel , vagin al megasphaera 1 Low - 0 score Calcu late total score by reta last the 3 indiv idual bacte rial vagin osis (BV) marke r score s toget her. Total score is inter prete d as follo ws: Total score 0-1: Indic ates the absen ce of BV. Total score 2: Indet ermin ate for BV. Addit ional clini mark data shoul d be evalu ated to estab dirk a diagn osis. Total score 3-6: Indic ates the prese nce of BV. This test was devel oped and its perfo rmanc e justin cteri stics deter mined by [facility]. It has not been clear ed or appro pramod by the Food and Drug Admin istra tion. The FDA has deter mined that such clear ance or appro will is not neces april. Not Available [facility] [address] [facility], [place], [address], 01/11/2018 11:10:07 01/08/20 18 01/08/2018 cultu re, urine urine culture, routine Final report Not Available [facility] [address] [place], [address], 01/11/2018 11:10:08 01/08/20 18 01/08/2018 cultu re, urine result 1 Commen t Cultu re shows less than 10,00 0 colon y formi ng units of bacte mode per jeronimo liter of urine . This colon y count is not gener ally consi dered to be clini karel signi fican t. Not Available [facility] [address] [place], [address], 01/11/2018 11:10:08 01/08/20 18 01/07/2018 urina lysis , dipst ick Leukocytes Negati ve Not Available In-Office Order Internal Use Only DO Not Attach Compendium DO Not Attach Compendium, Do Not Delete/merge, [id number] 01/07/2018 16:45:08 01/08/20 18 01/07/2018 urina lysis , dipst ick Nitrite negati ve Not Available In-Office Order Internal Use Only DO Not Attach Compendium DO Not Attach Compendium, Do Not Delete/merge, 01/07/2018 16:45:08 01/08/20 18 01/07/2018 urina lysis , dipst ick Urobilinogen .2 Not Available In-Of fice Order Internal Use Only DO Not Attach Compendium DO Not Attach Compendium, Do Not Delete/merge, 01/07/2018 16:45:08 01/08/20 18 01/07/2018 urina lysis , dipst ick Protein Negati ve Not Available In-Office Order Internal Use Only DO Not Attach Compendium DO Not Attach Compendium, Do Not Delete/merge, 01/07/2018 16:45:08 01/08/20 18 01/07/2018 urina lysis , dipst ick pH 5.5 Not Available In-Office Order Internal Use Only DO Not Attach Compendium DO Not Attach Compendium, Do Not Delete/merge, 01/07/2018 16:45:08 01/08/20 18 01/07/2018 urina lysis , dipst ick Blood Negati ve Not Available In-Office Order Internal Use Only DO Not Attach Compendium DO Not Attach Compendium, Do Not Delete/merge, 01/07/2018 16:45:08 01/08/20 18 01/07/2018 urina lysis , dipst ick Specific [place] 1.025 Not Available In-Off ice Order Internal Use Only DO Not Attach Compendium DO Not Attach Compendium, Do Not Delete/merge, 01/07/2018 16:45:08 01/08/20 18 01/07/2018 urina lysis , dipst ick Ketone Negati ve Not Available In-Office Order Internal Use Only DO Not Attach Compendium DO Not Attach Compendium, Do Not Delete/merge, 01/07/2018 16:45:08 01/08/20 18 01/07/2018 urina lysis , dipst ick Bilirubin Negati ve Not Available In-Office Order Internal Use Only DO Not Attach Compendium DO Not Attach Compendium, Do Not Delete/merge, 01/07/2018 16:45:08 01/08/20 18 01/07/2018 urina lysis , dipst ick Glucose Negati ve Not Available In-Office Order Internal Use Only DO Not Attach Compendium DO Not Attach Compendium, Do Not Delete/merge, 01/07/2018 16:45:08 01/08/20 18 01/07/2018 urina lysis , dipst ick Appearance Slight ly Cloudy Not Available In-Office Order Internal Use Only DO Not Attach Compendium DO Not Attach Compendium, Do Not Delete/merge, 01/07/2018 16:45:08 01/08/20 18 01/07/2018 urina lysis , dipst ick Color Yellow Not Available In-Office Order Internal Use Only DO Not Attach Compendium DO Not Attach Compendium, Do Not Delete/merge, 01/07/2018 16:45:08 12/25/19 19 12/25/2018 TSH + free T4, serum TSH 1.390 uIU/m L 0.450- 4.500 Not Available [facility] ([facility]) [address] [place], [address], 12/25/2018 07:15:27 12/25/19 19 12/25/2018 TSH + free T4, serum T4,free(dire ct) 1.43 NG/dL 0.82-1 .77 Not Available [facility] ([facility]) [address] [place], [address], 12/25/2018 07:15:27 12/25/19 19 12/24/2018 CBC w/ auto diff WBC 5.9 x10e3 /uL 3.4-10 .8 Not Available [facility] ([facility]) [address] [facility], [place], [address], 12/25/2018 07:15:27 12/25/1912/24/2018 CBC w/ auto diff RBC 4.89 x10e6 /uL 3.77-5 .28 Not Available [facility] ([facility]) [address] [facility], [place], [address], 12/25/2018 07:15:27 12/25/19 19 12/24/2018 CBC w/ auto diff hemoglobin 15.1 g/dL 11.1-1 5.9 Not Available [facility] ([facility]) [address] [facility], [place], [address], 12/25/2018 07:15:27 12/25/1912/24/2018 CBC w/ auto diff hematocrit 45.0 % 34.0-4 6.6 Not Available [facility] ([facility]) [address] [place], [address], 12/25/2018 07:15:27 12/25/1912/24/2018 CBC w/ auto diff MCV 92 fL 79-97 Not Available [facility] ([facility]) [address] [place], [address], 12/25/2018 07:15:27 12/25/1912/24/2018 CBC w/ auto diff MCH 30.9 pg 26.6-3 3.0 Not Available [facility] ([facility]) [address] [place], [address], 12/25/2018 07:15:27 12/25/1912/24/2018 CBC w/ auto diff MCHC 33.6 g/dL 31.5-3 5.7 Not Available [facility] ([facility]) [address] [place], [address], 12/25/2018 07:15:27 12/25/1912/24/2018 CBC w/ auto diff RDW 13.2 % 12.3-1 5.4 Not Available [facility] ([facility]) [address] [facility], [place], [address], 12/25/2018 07:15:27 12/25/19 19 12/24/2018 CBC w/ auto diff platelets 173 x10e3 /uL 150-37 9 Not Available [facility] ([facility]) [address] [facility], [place], [address], 12/25/2018 07:15:27 12/25/19 19 12/24/2018 CBC w/ auto diff neutrophils 66 % not estab. Not Available [facility] ([facility]) [address] [facility], [place], [address], 12/25/2018 07:15:27 12/25/19 19 12/24/2018 CBC w/ auto diff lymphs 24 % not estab. Not Available [facility] ([facility]) [address] [facility], [place], [address], 12/25/2018 07:15:27 12/25/19 19 12/24/2018 CBC w/ auto diff monocytes 6 % not estab. Not Available [facility] ([facility]) [address] [facility], [place], [address], 12/25/2018 07:15:27 12/25/19 19 12/24/2018 CBC w/ auto diff eos 3 % not estab. Not Available [facility] ([facility]) [address] [facility], [place], [address], 12/25/2018 07:15:27 12/25/19 19 12/24/2018 CBC w/ auto diff basos 1 % not estab. Not Available [facility] ([facility]) [address] [facility], [place], [address], 12/25/2018 07:15:27 12/25/19 19 12/24/2018 CBC w/ auto diff immature cells MANAGER OF TRAINING AND DEVELOPMENT Not Available [facility] ([facility]) [address] [facility], [place], [address], 12/25/2018 07:15:27 12/25/1912/24/2018 CBC w/ auto diff neutrophils (absolute) 3.9 x10e3 /uL 1.4-7. 0 Not Available [facility] ([facility]) [address] [facility], [place], [address], 12/25/2018 07:15:27 12/25/1912/24/2018 CBC w/ auto diff lymphs (absolute) 1.4 x10e3 /uL 0.7-3. 1 Not Available [facility] ([facility]) [address] [facility], [place], [address], 12/25/2018 07:15:27 12/25/1912/24/2018 CBC w/ auto diff monocytes(ab solute) 0.3 x10e3 /uL 0.1-0. 9 Not Available [facility] ([facility]) [address] [facility], [place], [address], 12/25/2018 07:15:27 12/25/1912/24/2018 CBC w/ auto diff eos (absolute) 0.2 x10e3 /uL 0.0-0. 4 Not Available [facility] ([facility]) [address] [facility], [place], [address], 12/25/2018 07:15:27 12/25/1912/24/2018 CBC w/ auto diff baso (absolute) 0.1 x10e3 /uL 0.0-0. 2 Not Available [facility] ([facility]) [address] [facility], [place], [address], 12/25/2018 07:15:27 12/25/1912/24/2018 CBC w/ auto diff immature granulocytes 0 % not estab. Not Available [facility] ([facility]) [address] [facility], [place], [address], 12/25/2018 07:15:27 12/25/19 19 12/24/2018 CBC w/ auto diff immature grans (abs) 0.0 x10e3 /uL 0.0-0. 1 Not Available [facility] ([facility]) [address] [facility], [place], [address], 12/25/2018 07:15:27 12/25/19 19 12/24/2018 CBC w/ auto diff NRBC MANAGER OF TRAINING AND DEVELOPMENT Not Available [facility] ([facility]) [address] [facility], [place], [address], 12/25/2018 07:15:27 12/25/19 19 12/24/2018 CBC w/ auto diff hematology comments: MANAGER OF TRAINING AND DEVELOPMENT Not Available [facility] ([facility]) [address] [facility], [place], [address], 12/25/2018 07:15:27 12/25/19 19 12/25/2018 prola ctin, serum prolactin 17.2 NG/mL 4.8-23 .3 Not Available [facility] ([facility]) [address] [facility], [place], [address], 12/25/2018 07:15:28 01/09/20 18 01/08/2018 , seng hughes, compl ete No observ ation record ed. [facility] [address], [place], [address], 01/16/2018 10:53:35 12/26/19 19 12/25/2018 , seng hughes, compl ete No observ ation record ed. [facility] [address], [place], [address], 12/31/2018 13:08:38 01/01/20 19 01/08/2018 seng TRUJILLO No observ ation record ed. [facility] Not Available 2018 12:28:37 01/09/20 19 01/08/2019 US, seng hughes, compl ete No observ ation record ed. [facility] Scheduling [address] [facility] [place], [address], 01/12/2019 14:05:15 Result Notes None recorded. Problems No Known Problems Procedures Surgical History Date Name Laterality Status Provider Name and Address Organization Details Recorded Time 7 Date of Last Pap Smear completed Yaz Arevalo MA [facility] 07/31/2017 15:22:08 Tubal Ligation completed Yaz Arevalo MA [facility] - [facility] 07/31/2017 15:27:57 Other completed Yaz Arevalo MA [facility] 2016 15:28:23 Imaging Results Imaging Date Name Status LastModified by Organiz ation Details LastModified Time 01/08/2018 US, pelvis, complete completed [facility] [address] , [place], [address], 01/16/2018 10:53:35 12/25/2018 US, pelvis, complete completed [facility] [address] , [place], [address], 12/31/2018 13:08:38 01/08/2018 US, pelvis completed [facility] Information no t available 12/31/2018 12:28:37 01/08/2019 US, pelvis, complete completed [facility] [address] [facility] [place], [address], 01/12/2019 14:05:15 Procedure Notes None recorded. Medical Equipment None Reported. Allergies Allergen ID Allergen Name Allergen Category Reaction Reaction Severity Criticality Documentation Date Start Date Code Code System Note Provider Name and Address Organization Details Recorded Time 44890 Substance with sulfonami de structure and antibacte rial mechanism of action (substanc e) medicatio n Not available Not available Not available 08/07/2017 46243 8003 SNOMED Not Available Not Available Not Available Medications Name Sig Start Date Stop Date Status Note LastModified by Organization Details LastModified Time Prescript ion - New active arch program forms complete Not Available Not Available Not Available penicilli n V potassium 500 mg tablet Take 1 tablet every 6 hours by oral route as directed for 10 days. 2016 active Not Available Not Available Not Avai lable ciproflox acin 500 mg tablet Take 1 tablet twice a day by oral route as directed for 5 days. 2017 active Not Available Not Available Not Avai lable tramadol 50 mg tablet active Not Available Not Available Not Available Flagyl 500 mg tablet Take 1 tablet twice a day by oral route for 7 days. 01/07 completed Not Available Not Available Not Available Xanax 0.25 mg tablet Take 1 tablet 3 times a day by oral route. active Not Available Not Available No t Available Tylenol-C odeine #3 300 mg-30 mg tablet Take 1 tablet every 6 hours by oral route as needed. 2017 active Not Available Not Available Not Avai lable fluticaso ne propionat e 50 mcg/actua tion nasal spray,yvonne pension active Not Available Not Available Not Available loratadin e 10 mg tablet active Not Available Not Available Not Available nitrofura ntoin monohydra te/macroc rystals 100 mg capsule active Not Available Not Available Not Available Vitals Date Recorded Body height Body mass index (BMI) Body weight Systolic blood pressure Diastolic blood pressure Provider Name and Address Organization Details Last Updated DateTime 01/07/2018 172.72 cm 28 kg/m2 79090 g 112 mm[Hg] 82 mm[Hg] Alley Comer MA [facility] 8 16:52:09 Date Recorded Body height Body mass index (BMI) Body weight Systolic blood pressure Diastolic blood pressure Provider Name and Address Organization Details Last Updated DateTime 12/24/2018 172.72 cm 28 kg/m2 31802 g 102 mm[Hg] 84 mm[Hg] Alley Comer MA DC - [facility] 9 10:12:15 Date Recorded Body height Body mass index (BMI) Body weight Systolic blood pressure Diastolic blood pressure Provider Name and Address Organization Details Last Updated DateTime 12/30/2018 172.72 cm 28.1 kg/m2 64481.59 g 112 mm[Hg] 70 mm[Hg] Alley Comer MA [facility] 9 16:53:43 Date Recorded Body height Body mass index (BMI) Body weight Systolic blood pressure Diastolic blood pressure Provider Name and Address Organization Details Last Updated DateTime 07/31/2017 172.72 cm 27.2 kg/m2 28724.03 g 118 mm[Hg] 64 mm[Hg] Yaz Arevalo MA [facility] 7 15:25:22 Social History Question Answer Notes LastModified by Organizat ion Details LastModified Time Tobacco Smoking Status Current Every Day Smoker Yaz Arevalo MA null, [facility] 07/31/2017 15:29:35 What Was The Date Of Your Most Recent Tobacco Screening? 12/24/2018 Information not available 05/14/2019 How Much Tobacco Do You Smoke? 1 PPD To 1 Pack In A Half Information not available 07/31/2017 How Many Years Have You Smoked Tobacco? 15 Information not available 07/31/2017 Sex: Unknown Functional Status None recorded. Mental Status None recorded. Family History Relationship Description Onset Age of this Age Resolved Age Notes LastModified by Organization Details LastModified Time Maternal Grandmother Malignant tumor of breast In 70's knealma Not available 07/31/2017 15:29:31 Medical History Condition Response Anxiety Disorder Y Other Y Gynecological History Statement/Question Response Abnormal Pap Y Sexually Active? Y Menses Monthly Y STIs/STDs Y Date of Last Pap Smear 07/31/2017 Sexual Problems? N Age at Menarche 13 Current Control Method Tubal Ligat ion Age at First Child 19 LMP Approximate Obstetrics History GPAL:G 2 P 2 0 0 2 Type Value Full Term 2 Living 2 Total 2 Past Encounters Encounter ID Performer Location Encounter Start Date Encounter Closed Date Diagnosis/Indication Diagnosis SNOMED-CT Code Diagnosis ICD10 Code Diagnosis Note [id number] MD Christos More ([place] [address]) [address] [facility] [place] [address] 07/31/2017 15:10:09 08/01/2017 09:22:43 Gynecologic examination 53135138 Z01.419 Vaginal discharge 650808 006 N89.8 Abnormal u terine bleeding 4825969880 9100 N93.9 Pain in pelvis 88584680 R10.2 [id number] MD Christos More ([place] [address]) [address] [facility] [place] [address] 01/07/2018 16:39:11 01/10/2018 15:02:42 Urinary tract infectious disease 84588431 N39.0 Pain in pelvis 97244090 R10.2 [id number] MD Christos More 14 OB [address] [facility] [place] [address] 12/24/2018 09:44:39 12/24/2018 12:40:48 Irregular periods 27973126 N92.6 - Labs and US ws ordered. The risks/bene fits/alter natives of medical therapy versus surgical interventi on was discussed with the patient. Will re-evaluat e with results. [id number] MD Christos More 14 OB [address] [facility] [place] [address] 12/30/2018 16:39:54 12/31/2018 09:30:46 Cyst of right ovary 0556707367 7147782 N83.201 - Patient was informed of results and surgical interventi on was recommende d given the risk of torsion. Patient is yet to make a decision. Patient was given the [employer] brochure on Ovarian cysts. Health Concerns Section Related Observation LastModified by Organization Detai ls LastModified Time None Recorded Concern Status LastModified by Organization Details LastModified Time None Recorded Advance Directives Directive None Recorded Payers Encounter Date Sequence Insurance Name Policy Number Policy Feldman Covered Member ID Feldman Member ID Guarantor Name 07/31/2017 1 *SELF PAY* Me steve Ness Caridad 01/07/2018 1 *SELF PAY* Me steve Menezesphilip 12/24/2018 1 [place] [id number] Kathy Mclean [id number] Kathy Menezesphilip 12/30/2018 1 [place] [id number] Kathy Ness [place] [id number] Kathy Mclean Notes Date Note Type Note Provider Name and Address Organization Details Recorded Time 07/31/2017 text/html Annual GYNReport ed bypatient.Menstrual cycle:Menorrhagia;Blee ding lasts more than 7 days Urinary symptoms:No hematuria; No incontinence Vulva:No genital lesion Vagina:Normal vaginal discharge Breast:No breast pain; No breast lump; No nipple discharge Current Contraception:Tubal ligation Sexual complaints:No sexual complaints; No pain during intercourse; Normal libido Menopausal Symptoms:No menopausal symptoms; Normal vaginal lubrication Psychological symptoms:No depression; No anxiety; No PMDD Preventive measures:Encourage self breast examination; Encourage regular exercise; Encourage no tobacco usePelvic PainReported bypatient.Location:[facility] Onset/Timin-7 days Duration:constant Quality:dull Severity:pain level 10/10 Context:history of ovarian cysts; history of STDs (HPV); history of kidney stones Alleviating Factors:rest Aggravating Factors:movement Associated Symptoms:no pain with urination; normal libido; no nocturia; no urinary frequency; no vaginal itching or irritation;back pain;chills;vaginal discharge;diarrhea;dys pareunia Lorelei Urena MD Attn: Accounting,[address] [place] [address], [phone] [place] [address] 08/01/2017 09:22:26 01/07/2018 text/html Pelvic PainRepor ana bypatient.Location:[facility] Onset/Timin-7 days Duration:constant Quality:sharp Severity:pain level 9/10 Context:history of ovarian cysts Alleviating Factors:rest Aggravating Factors:smoking; eating; standing Associated Symptoms:no chills; no constipation; no diarrhea; no vaginal discharge; no pain with urination; normal emptying of bladder; no feelings of urgency; no blood in the urine; normal libido; no vomiting; no nocturia; no sexual abuse; no dyspareunia;back pain;nausea;fever Lorelei Urena MD Attn: Accounting,[address] [place] [address], [phone] [place] [address] 01/07/2018 19:39:44 12/24/2018 text/html Abnormal BleedingReported bypatient.Onset/Timing :past 2 cycles Duration:7-10 days/month Quality:light Severity:had heavy bleeding one occasion 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 Pelvic US shows a 7cm right sided ovarian cyst. Patient rates pain as 5/10. Patient was informed that the recommendation for cysts greater 6 cm was for surgical intervention. CBC showed a hemoglobin of 15. Patient is still having vaginal spotting. MIrena IUD was recommended. Lorelei Urena MD Attn: Accounting,[address] [facility], [place], [address], [facility] 12/30/2018 17:57:52 OBGyn Episode No OBEpisode recorded.
--- OUTSIDE RECORDS SUMMARY | 2024-11-25 13:40 | XMS_ITS | Clinical Summary ---
Author Organization [facility] Address [address] [place] [address] Phone Care Team Providers Care Geriatric Nurse Practitioner Name Role Phone Lia Duran MD Unavailable Rajwinder Alvarez APRN, PARALEGAL SUPERVISOR Unavailable Newton Dos Santos DOUBLE BACKER, PARALEGAL SUPERVISOR Primary Care Pr ovider Yfn Veliz MD Unavailable Allergies Active Allergy Reactions Criticality Noted Date Comments Sulfamethoxazole-Trimeth oprim Anaphylaxis 03/02/2021 Latex Itching,Rash Medium 01/02/2019 Nitrofurantoin Rash 03/02/2021 Morphine Other (see Comments),Shortness of Breath Medium 01/02/2019 Reaction: Trouble Breathing, , , , Reaction: Trouble Breathing, Difficulty breathing Medications tirzepatide (Mounjaro) 5 MG/0.5ML Solution Pen-injector 5 mg by Subcutaneous route once a week. TAKES MONDAYS Active LORazepam (Ativan) 1 MG TabletIndicati ons:Rectal cancer (HCC) Take 1 Tablet by mouth every 6 hours as needed for Anxiety. 30 Tablet 4 Active Additional Information Patient taking differently: 0.05 mg/kgOral EVERY 6 HOURS PRN, Anxiety, Reported on 08/21/2024 nicotine (NICODERM CQ) 21 MG/24HR PATCH 24 HR 1 Patch by Transdermal route every 24 hours. 30 Patch Active Additional Information Patient not taking.Reported on 09/22/2024 acetaminophen (TYLENOL) 325 MG Tablet Take 1 Tablet by mouth every 6 hours as needed for Mild or more severe pain. Do not exceed 4000 mg of acetaminophen in 24 hour from all sources. 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 Rectal mass 06/24/2024 Erythrocytosis 01/21/2024 Polycythemia 01/21/2024 BRBPR (bright red blood per rectum) 01/21/2024 IBS (irritable bowel syndrome) 11/19/2023 Graves' disease 11/19/2023 PCOS (polycystic ovarian syndrome) 11/19/2023 Encounters Date Type Department Care Team Description 2024 Results Follow-Up [facility] Gastroenterology [facility] [address] [place] [address] Ellie Diaz RN 09/25/2024 Documentation Only [facility] Mammography [address] [place] [address] Olvin Livingston MD 09/22/2024 3:40 PM FLAME GOUGER Office Visit [facility] Oncology Services [address] [place] [address] Olvin Livingston MD CHEK2 gene mutation positive (Primary Dx); Rectal cancer (HCC); At high risk for breast cancer Discharge Disposition: Discharged to home or Selfcare 09/22/2024 3:15 PM FLAME GOUGER Office Visit [facility] General Surgery [facility] [address] [address] Yfn Veliz MD S/P gastrointestinal surgery (Primary Dx) Discharge Disposition: Discharged to home or Selfcare 09/22/2024 Travel 09/07/2024 8:45 AM FLAME GOUGER [facility] Periop [address] [place] [address] Christiano Grace, DOUBLE BACKER, ROLLER HAND 09/07/2024 8:10 AM FLAME GOUGER - 09/07/2024 10:10 AM FLAME GOUGER [facility] Periop [address] [place] [address] Yfn Veliz MD TRANSANAL EXCISION OF RECTAL MASS 09/07/2024 6:19 AM FLAME GOUGER - 09/07/2024 2:36 PM FLAME GOUGER Hospital [facility] Preop/Pacu II [address] [place] [address] Yfn Veliz MD Rectal mass Discharge Disposition: Discharged to home or Selfcare 09/07/2024 Travel 09/02/2024 1:30 PM FLAME GOUGER Office Visit [facility] Medical [facility] - Endocrinology [facility] [address] [place] [address] Lia Duran MD Hyperthyroidism (Primary Dx); Class 1 obesity due to excess calories with body mass index (BMI) of 31.0 to 31.9 in adult, unspecified whether serious comorbidity present Discharge Disposition: Discharged to home or Selfcare 09/02/2024 Travel from Last 3 Months Immunizations Immunization Administration Dates Next Due Influenza Vaccine, Quadrivalent, PF 09/08/2014 Influenza, Seasonal, Injectable, Undefined 11/05 Family History Medical History Relation Name Comments No Known Problems Brother lauri No Known Problems Daughter Cancer Father LUNG Lung Cancer Father Thyroid Disease Half-Sister 1 Rubi Diabetes Maternal Grandfather Edward Heart Attack Maternal Grandfather Edward Diabetes Maternal Grandmother Edward Thyroid Disease Maternal Grandmother Edward Breast Cancer Mother Kamila Other-comment Mother Kamila CHEK2 mutation identified during Breast Cancer workup Thyroid Disease Mother Kamila No Known Problems Son Relation Name Status Comments Brother lauir Alive Daughter Alive Father Half-Sister 1 Rubi Alive Half-Sister 2 vasquez Alive Maternal Grandfather Edward Maternal Grandmother Edward Mother Kamila Alive Paternal Grandfather Paternal Grandmother Son Alive Social History Tobacco Use Types Packs/Day Years Used Date Smoking Tobacco: Some Days Cigarettes 0.3 32.1 Started: 1992 Smokeless Tobacco: Never Tobacco Cessation:Ready to Q uit: Not Asked; Counseling Given: Not Answered Comments:Patient declined smoking cessation information/kkb Alcohol Use Standard Drinks/Week Comments Yes 10 (1 standard drink = 0.6 oz pu re alcohol) weekend drinker (8-10) Sexually Active Control Partners Comments Yes Surgical Male Comments No Sex and Gender Information Value Date Recorded Sex Assigned at Not on file Legal Sex Female 11:29 AM FLAME GOUGER Gender Identity Not on file Sexual Orientation Not on file Last Filed Vital Signs Vital Sign Reading Time Taken Comments Blood Pressure 119/80 09/22/2024 4:27 PM FLAME GOUGER Pulse 85 09/22/2024 4:27 PM FLAME GOUGER Temperature 36.8 C (98.3 F) 09/22/2024 4:27 PM FLAME GOUGER Respiratory Rate 20 09/22/2024 4:27 PM FLAME GOUGER Oxygen Saturation 99% 09/22/2024 4:27 PM FLAME GOUGER Inhaled Oxygen Concentration - - Weight 91 kg (200 lb 9.6 oz) 09/22/2024 4:27 PM FLAME GOUGER Height 172.7 cm (5' 8 ) 09/22/2024 4:27 PM FLAME GOUGER Body Mass Index 30.5 09/22/2024 4:27 PM FLAME GOUGER Plan of Treatment Upcoming Encounters Date Type Department Care Team (Late st Contact Info) Description 03/02/2025 3:15 PM CDT Office Visit [facility] Medical Group - Endocrinology [facility] [address] [place] [address] Lia Duran MD [address] [address] 03/25/2025 1:40 PM CDT Office Visit [facility] Center Oncology Services [address] [place] [address] Olvin Livingston MD [address] [place] [address] Discharge Disposition: Discharged to home or Selfcare Health Maintenance Due Date Last Done Comments Cologuard 1980 Hepatitis C Virus (HCV) Screening 1980 Immunochemical Fecal Occult Blood 1980 TdaP Immunization 1980 SARS-COV-2 Immunization (#1) 1985 Hepatitis B Immunization (1 of 3 - 19+ 3-dose series) 1999 Pneumococcal Immunization Combined (1 of 2 - PCV) 1999 Pap Smear 2001 Cervical Cancer Screening (CCS) 2010 HPV/Cotest 2010 Influenza Immunization (#1) 2024 09/08/2014 Colonoscopy 06/24/2025 06/24/2024, 06/24/2024 Colorectal Cancer Screening 06/24/2025 Mammogram 01/23/2026 01/24/2024, 12/09/2020 Colonoscopy High Risk 06/24/2034 06/24/2024 Respiratory Syncytial Virus (RSV) Immunization (Adult) (1 - 1-dose 75+ series) 2055 Discussion re Starting/Frequency of Mammograms Completed 01/24/2024, 12/09/2020 Meningococcal Immunization (ACWY) Aged Out No longer eligible b ased on patient's age to complete this topic Rotavirus Immunization Aged Out No lo nger eligible based on patient's age to complete this topic Procedures Procedure Name Priority Date/Time Associated Diagnosis Comments PATHOLOGY SURGICAL Routine 09/07/2024 10:02 AM FLAME GOUGER LMA Routine 09/07/2024 8:58 AM FLAME GOUGER TRANSANAL EXCISION RECTAL TUMOR 09/07/2024 8:25 AM FLAME GOUGER RECTAL CANCER Special Needs Allergy: Latex, Morphine, Bactrim, Macrobid Hx: Thyroid, CA 5' 7.75 190# 23 hr obs POCT URINE HCG () Routine 09/07/2024 6:40 AM FLAME GOUGER JURGEN SCREENING WILL W IMPL DIGITAL W CAD W FLORA Routine 01/24/2024 3:26 PM CDT Encounter for screening mammogram for malignant neoplasm of breast from Last 3 Months or Most Recently Relevant to Health Maintenance Results * Pathology Surgical (09/07/2024 10:02 AM FLAME GOUGER) Case Report Surgical Pathology Report Case: [id number] Authorizing Provider: Yfn Veliz MD Collected: 09/07/2024 10:02 AM Ordering Location: [facility] Received: 09/07/2024 10:51 AM [facility] Main OR Pathologist: Kel Grigsby MD PhD Specimen: Rectum, RECTAL CANCER EXCISION 09/08/2024 8:43 AM [facility] FINAL DIAGNOSIS Rectum, transanal resection of rectal mass: - Benign rectal tissue with scar - Negative for malignancy 09/08/2024 8:43 AM [facility] Pre-Operative Diagnosis RECTAL CANCER 09/08/2024 8:43 AM [facility] Gross Description A. RECTAL CANCER EXCISION The specimen presents fresh from the operating room for gross and microscopic examination, labeled with the patient's name, Kathy Mclean, and designated as rectal cancer excision. The specimen consists of an ovoid shaped piece of tissue measuring 2 cm x 1 cm x 0.7 cm. The surface of the specimen is pink-barrett to dark red and ulcerated in appearance. The excisional margin has cautery effect. The excisional margin is inked. The specimen is sectioned at narrow intervals. Submitted in its entirety in cassettes A1 and A2. Total time of fixation is 11 hours, 44 minutes. KS/sb 09/08/2024 8:43 AM [facility] Microscopic Description Microscopic examination was performed which supports the final diagnosis. All control tissues stained appropriately. 09/08/2024 8:43 AM [facility] Tissue RECTUM STRUCTURE / Unknown 09/07/2024 10:02 AM FLAME GOUGER 09/07/2024 10:51 AM FLAME GOUGER us Yfn Veliz MD PATHOLOGY/CYTOLOGY ORDERABLES Fi nal Result [email or web address] LAB [address] [place] [address] * LMA (09/07/2024 8:58 AM FLAME GOUGER) Narrative Christiano Grace APRN, CRNA - 09/07/2024 8:58 AM FLAME GOUGER Christiano Grace APRN, CRNA 09/07/2024 8:59 AM LMA Staffing Performed: resident/ROLLER HAND Resident/ROLLER HAND: Christiano Grace APRN, CRNA Performed by: Christiano Grace APRN, CRNA Authorized by: Christiano Grace APRN, CRNA Airway Details Overall Difficulty: Easy Preoxygenated: Yes Ease of Mask Ventilation: Not attempted LMA Type: Disposable LMA Size: 4 Adequate seal established: Yes LMA placement confirmed by: bilateral breath sounds, CO2 detection Atraumatic LMA Placement us Christiano Grace APRN, CRNA ANESTHESIA ORDERABLE S Final Result * POCT Urine HCG () (09/07/2024 6:40 AM FLAME GOUGER) POC URINE Negative POC URINE CONTROL Bicycle Service Technician Pass Urine 09/07/2024 6:40 AM FLAME GOUGER us Yfn Veliz MD POINT OF CARE TESTING (MANUAL) F inal Result * JURGEN SCREENING WILL W IMPL DIGITAL W CAD W FLORA (01/24/2024 3:26 PM CDT) Anatomical Region Laterality Modality breast Bilateral Mammography 01/24/2024 3:00 PM CDT Narrative 01/29/2024 3:57 PM CDT - JURGEN SCREENING WILL W IMPL DIGITAL W CAD W FLORA BILATERAL DIGITAL SCREENING MAMMOGRAM 3D/2D WITH CAD WITH MEDIOLATERAL OBLIQUE CRANIOCAUDAL WITH AUGMENTATION: 01/24/2024 The study was acquired using digital technology and interpreted from soft copy. Current study was also evaluated with ICAD version 7.2. 2D digital mammographic views, as well as 3D digital tomosynthesis were performed in the CC and MLO projections. CLINICAL: Routine screening. Patient has no complaints. No personal history of cancer. No family history of breast cancer. COMPARISONS: Comparison is made to exams dated: 12/09/2020 [facility], 07/09/2022, and 07/13/2022 [facility]. BREAST TISSUE:There are scattered fibroglandular densities in both breasts. FINDINGS: Bilateral breast implants are stable. No significant masses, calcifications, or other findings are seen in either breast. There has been no significant interval change. IMPRESSION: BI-RAD 1 NEGATIVE There is no mammographic evidence of malignancy. A 1 year screening mammogram is recommended. A letter will be sent to the patient with these results. The patient will be entered into a reminder system with a target due date of 1 year for her next screening exam. Electronically signed by: Shaka soto/gerald:01/29/2024 12:00:13 Discharge Door Operator(s): RT Shiloh(R)(M), [facility] letter sent: Normal Exam Reading location: [facility] BI-RADS: 1 Negative Procedure Note Shaka Underwood MD - 01/29/2024 - JURGEN SCREENING WILL W IMPL DIGITAL W CAD W FLORA BILATERAL DIGITAL SCREENING MAMMOGRAM 3D/2D WITH CAD WITH MEDIOLATERAL OBLIQUE CRANIOCAUDAL WITH AUGMENTATION: 01/24/2024 The study was acquired using digital technology and interpreted from soft copy. Current study was also evaluated with ICAD version 7.2. 2D digital mammographic views, as well as 3D digital tomosynthesis were performed in the CC and MLO projections. CLINICAL: Routine screening. Patient has no complaints. No personal history of cancer. No family history of breast cancer. COMPARISONS: Comparison is made to exams dated: 12/09/2020 [facility], 07/09/2022, and 07/13/2022 [facility]. BREAST TISSUE:There are scattered fibroglandular densities in both breasts. FINDINGS: Bilateral breast implants are stable. No significant masses, calcifications, or other findings are seen in either breast. There has been no significant interval change. IMPRESSION: BI-RAD 1 NEGATIVE There is no mammographic evidence of malignancy. A 1 year screening mammogram is recommended. A letter will be sent to the patient with these results. The patient will be entered into a reminder system with a target due date of 1 year for her next screening exam. Electronically signed by: Shaka soto/gerald:01/29/2024 12:00:13 Discharge Door Operator(s): SHARI MatamorosR)(M), [facility] letter sent: Normal Exam Reading location: [facility] BI-RADS: 1 Negative RAMYA Hall APRN MAMMO ORDERA BLES Final Result from Last 3 Months or Most Recently Relevant to Health Maintenance Insurance [facility] PHYSICIAN/ANCILLARY ONLY Care Teams Geriatric Nurse Practitioner Relationship Specialty Start Date End Date Newton Dos Santos APRN, CNP [address] [facility] [address] [place] [address] PCP - General Advanced Practice Nurse 06/24/24 Lia Duran MD [address] [facility] [address] [place] [address] Consulting Physician Endocrinology 01/02/24 Rajwinder Alvarez APRN, CNP [address] [place] [address] Nurse Practitioner Advanced Practice Nurse 02/18/24 Yfn Veliz MD [address] [place] [address] Consulting Physician Colon and Rectal Surgery 06/25/24
--- OUTSIDE RECORDS SUMMARY | 2024-11-25 13:40 | XMS_ITS | Referral Summary ---
Author Organization [facility] Address [address] [place] [address] Care Team Providers Care Rescue Worker Name Role Phone Ernesto Tom MD Primary Care Provider Lorelei Urena MD Unavailable [phone] Kecia Flores NP Unavailable Allergies Active Allergy [...] rapid amelioration of symptoms with a beta sauarbh and measures aimed at decreasing thyroid hormone [...] Plan (07/19/2021 3:21 PM CDT): Referral to Enrichment Director If medical therapy for Hyperthyroidism is unsuccessful will recommend thyroid lobectomy Menorrhagia 03/13/2021 Overview (07/20/2023): Added automatically from request for surgery [id number] Note: Unchanged Benign endometrial hyperplasia 03/13/2021 Overview [...] Quadrivalent, Spl it, Preservative Free, Intramuscular 09/08/2014 Social History Tobacco Use Types Packs/Day Years [...] on file Legal Sex Female 6:59 PM RESTRIKE HAMMER OPERATOR Gender Identity Not on file Sexual Orientation Not on file Occupation Industry Job Start Date Job End Date Not on file Not on file Not on file Not on file Last Filed Vital Signs Vital Sign Reading Time Taken Comments Blood Pressure 128/80 09/21/2023 8:18 AM RESTRIKE HAMMER OPERATOR Pulse 99 09/21/2023 8:18 AM RESTRIKE HAMMER OPERATOR Temperature 36.7 C (98.1 F) 09/21/2023 8:18 AM RESTRIKE HAMMER OPERATOR Respiratory Rate 18 09/21/2023 8:18 AM RESTRIKE HAMMER OPERATOR Oxygen Saturation 98% 09/21/2023 8:18 AM RESTRIKE HAMMER OPERATOR Inhaled Oxygen Concentration - - Weight 88.5 kg (195 lb) 09/21/2023 8:18 AM RESTRIKE HAMMER OPERATOR Height 170.2 cm (5' 7 ) 09/21/2023 8:18 AM RESTRIKE HAMMER OPERATOR Body Mass Index 30.54 09/21/2023 8:18 AM RESTRIKE HAMMER OPERATOR Plan of Treatment Not on file Procedures Procedure Name Priority Date/Time Associated Diagnosis [...] Most Recently Relevant to Health Maintenance Insurance [facility] ANTHEM ACCESS BLUE ACCESS OOS [address] [place] [place] [id number] [address] [place] [id number] Care Teams Rescue Worker Relationship Specialty Start Date End Date Ernesto Tom MD PCP - General 05/22/21 Lorelei Urena MD 09/05/20 Kecia Flores NP [address] [place], [place] [phone] Nurse Practitioner 12/24/22
== END 2024-11-25 12:37 | disposition home or self-care (01) ==
PROVIDERS: Visit Provider Internal Medicine
DX: R93.89 Abnormal findings on diagnostic imaging of other specified body structures (principal); Z15.89 Genetic susceptibility to other disease; C20 Malignant neoplasm of rectum; Z91.89 Other specified personal risk factors, not elsewhere classified
CPT/HCPCS: 77049; A9577; C8908